=== PATIENT | female | born 1935 | race Caucasian/White ===

== ENCOUNTER 2023-02-17 18:21 | Emergency (ER) | payer OTHER, MEDICARE | END 2023-02-17 19:46 | disposition home or self-care (01) | LOC: CSHERS 18:21 | DX: S01.511A Laceration without foreign body of lip, initial encounter (principal); S09.90XA Unspecified injury of head, initial encounter; E78.5 Hyperlipidemia, unspecified; I10 Essential (primary) hypertension; W01.0XXA Fall on same level from slipping, tripping and stumbling without subsequent striking against object, initial encounter | CPT/HCPCS: 70450; 72125 ==